=== PATIENT | male | born 1955 ===

== ENCOUNTER 2019-01-26 13:42 | Emergency (ER) | payer OTHER ==
[2019-01-26 14:13] LABS: #Basophils 0.1 thou/uL (0.0-0.2); #Eosinphils 0.1 thou/uL (0.0-0.7); #Lymphocytes 1.4 thou/uL (1.20-3.40); #Neutrophils 12.9 thou/uL (1.40-6.50); %Basophils 0.9 % (0.0-1.0); %Eosinophils 0.4 % (0.0-10.0); %Lymphocytes 9.3 % (21.0-51.0); %Monocytes 6.6 % (0.0-10.0); %Neutrophils 82.9 % (42.0-75.0); Hemoglobin 15.2 g/dL (14.0-18.0); Mean Corpuscular HGB CONC 35.8 g/dL (32.0-36.0); Mean Corpuscular Hemoglobin 32.3 pg (27.0-31.0); Mean Corpuscular Volume 90.2 fL (78.0-98.0); Platelet Count 206 thou/uL (130-400); RBC Distribution Width 12.1 % (11.5-14.5); White Blood Cell (WBC) Count 15.6 thou/uL (4.8-10.8)
--- NOTE | 2019-01-26 14:22 | RAD ---
Exam:Right foot 3 views HISTORY: Pain. Trauma. COMPARISON: None FINDINGS: Lisfranc alignment is maintained. Joint spaces are preserved. No fracture. No cortical irre gularity or periosteal reaction. IMPRESSION: No fracture or dislocation.
--- NOTE | 2019-01-26 14:23 | RAD ---
XR Ankle Rt 3 View STANDARD HISTORY: Injury, right ankle pain FINDINGS: No fracture or dislocation is identified. The ankle mortise is maintained.
[2019-01-26 14:25] LABS: ALT (SGPT) 31 U/L (8-55); AST (SGOT) 25 U/L (5-34); Albumin 4.5 g/dL (3.4-4.8); Alkaline Phosphatase 68 U/L (40-150); Anion Gap 18 mmol/L (10-20); BUN (Urea Nitrogen) 19 mg/dL (8.4-25.7); Bilirubin, Total 0.4 mg/dL (0.2-1.2); Calc. Creatinine Clearance 0 mL/min (70-130); Calcium 9.6 mg/dL (7.8-10.44); Carbon Dioxide 21 mmol/L (23-31); Chloride 106 mmol/L (98-107); Estimated GFR-MDRD 62; Globulin 2.3 g/dL (2.4-3.5); Glucose 170 mg/dL (80-115); Potassium 4.5 mmol/L (3.5-5.1); Protein, Total 6.8 g/dL (5.8-8.1); Sodium 140 mmol/L (136-145)
--- NOTE | 2019-01-26 14:37 | RAD ---
Exam: right foot 3 views HISTORY: Pain. Trauma. COMPARISON: None FINDINGS: Lisfranc alignment is maintained. Joint spaces are preserved. No fracture. No cortical irre gularity or periosteal reaction. IMPRESSION: No fracture or dislocation. Transcribed Date/Time: 01/26/2019 2:36 PM
--- NOTE | 2019-01-26 15:00 | RAD ---
LEFT ANKLE 3 VIEWS: Date: 01/26/19 HISTORY: Left ankle pain, trauma. FINDINGS/IMPRESSION: Soft tissue swelling is present. The ankle mortise is maintained. No fracture or dislocation seen. POS: JOAN
[2019-01-26] MEDS ORDERED: Morphine 4 MG/ML VIAL ONE (15:06)
--- NOTE | 2019-01-26 15:15 | RAD ---
XR Foot Lt 3 View STANDARD HISTORY: Injury, left foot pain FINDINGS: No fracture or dislocation is identified.
[2019-01-26] MEDS ORDERED: Bacitracin Zinc 1 Packet ONE (16:04)
== END 2019-01-26 16:28 | disposition home or self-care (01) ==
LOC: SCSER 13:42
DX: S91.012A Laceration without foreign body, left ankle, initial encounter (principal); V04.90XA Pedestrian on foot injured in collision with heavy transport vehicle or bus, unspecified whether traffic or nontraffic accident, initial encounter; E78.5 Hyperlipidemia, unspecified; I10 Essential (primary) hypertension; Z79.899 Other long term (current) drug therapy
CPT/HCPCS: 12001; 80053; 85025; 96374; J2270